=== PATIENT | female | born 1975 ===

== ENCOUNTER 2021-04-02 07:09 | Day surgery (SDC) | payer OTHER ==
[~2021-04-02 07:09] MED LIST: LATUDA80 MG PO
== END 2021-04-02 18:25 | disposition home or self-care (01) ==
LOC: CIR.AMB 07:09
PROVIDERS: ATTEND Obstetrics & Gynecology
DX: Z30.2 Encounter for sterilization (principal); N73.6 Female pelvic peritoneal adhesions (postinfective); Z20.822 Contact with and (suspected) exposure to COVID-19